=== PATIENT | female | born 1975 | race Caucasian/White ===

== ENCOUNTER 2018-11-28 08:22 | Day surgery (SDC) | payer OTHER ==
[2018-11-28] MEDS ORDERED: IBUPROFEN 800 MG/8 ML IJ IVPB PRN (14:37)
[2018-11-28] MEDS ORDERED: ACETAMINOPHEN 325 MG TABLET (FP) PO PRN (14:37)
--- NOTE | 2018-11-28 14:37 | HP ---
History & Physical Update - History History: No Change - Physical Physical: No Change - Assessment Assessment: No Change - Plan Plan: No Change (Agree with H&P from 11/17/2018, cervical dysplasia, for LEEP)
[2018-11-28] MEDS ORDERED: fentaNYL CITRATE 250 MCG/5 ML VIAL ONE (14:40)
[2018-11-28] MEDS ORDERED: PROPOFOL 20 ML ONE (14:41)
[2018-11-28] MEDS ORDERED: SUCCINYLCHOLINE CHLORIDE 200 MG/10 ML VIAL ONE (14:41)
[2018-11-28] MEDS ORDERED: MIDAZOLAM HCL 2 MG/2 ML SINGLE DOSE VIAL ONE (14:41)
[2018-11-28] MEDS ORDERED: LIDOCAINE HCL/PF 2% SDV 5ML VIAL ONE (14:42)
[2018-11-28] MEDS ORDERED: LACTATED RINGERS SOLUTION 1,000 ML IV SCH ×2 (14:45→15:30)
[2018-11-28] MEDS ORDERED: DEXAMETHASONE SOD PHOSPHATE 4 MG/1 ML VIAL ONE (15:06)
--- NOTE | 2018-11-28 15:14 | OP ---
Operative Note - Note: Operative Date: 11/28/18 (dictation [id number]) Pre-Operative Diagnosis: Cervical dysplasia Operation: LEEP Post-Operative Diagnosis: Same as Pre-op Surgeon: Amy Young Anesthesiologist/HOTEL ROOM ATTENDANT: Louise Moss Anesthesia: General (with LMA) Specimens Removed: cervical biopsy Estimated Blood Loss (mls): 5 Operative Report Dictated: Yes
[2018-11-28] MEDS ORDERED: ONDANSETRON 4 MG/2 ML VIAL IVPUSH PRN (15:17)
[2018-11-28] MEDS ORDERED: oxyCODONE HCL 5 MG TABLET PO PRN (15:17)
[2018-11-28] MEDS ORDERED: ACETAMINOPHEN 325 MG TABLET (FP) ONE (17:03)
[2018-11-28 17:09] VITALS: TEMP 97.5
[2018-11-28 18:20] VITALS: BP 114/78; PULSE 63
--- NOTE | 2018-11-29 16:55 | OP ---
DATE OF OPERATION: 11/28/2018 PREOPERATIVE DIAGNOSIS: Cervical dysplasia. POSTOPERATIVE DIAGNOSIS: Cervical dysplasia. PROCEDURE: Loop electrosurgical excision procedure. SURGEON: Amy Morse D.O. ANESTHESIA: LMA. ANESTHESIOLOGIST: Louise Moss CRNA ESTIMATED BLOOD LOSS: 5 mL. COMPLICATIONS: None. DISPOSITION: Stable to PACU. COUNTS: Sponge, needle, instrument counts correct. BRIEF HISTORY AND PROCEDURE: The patient is a 43-year-old female who was seen in the office and found to have cervical dysplasia> The patient was counseled on her options, and she elected to undergo a LEEP procedure. The patient signed consent for the procedure in the office. She was admitted to [facility] on November 28, 2018. Consents were reconfirmed. The patient was taken back to the operating room, placed in the dorsal lithotomy position, and LMA general anesthesia was applied. She was prepped and draped in the usual sterile fashion, and a hard timeout was performed. A plastic speculum was placed inside the vagina. The cervix was easily visualized and acetic acid was applied. Using a large LEEP loop a single pass from anterior to posterior was completed to remove the specimen which was sent to pathology for permanent evaluation. Rollerball cautery was used to cauterize the surgical bed, and Monsels solution was applied. Excellent hemostasis was achieved at the end of the case. All instruments were removed from the vagina. Sponge and instrument counts reportedly correct. The patient tolerated the procedure well, recovering in stable condition in the PACU after the procedure. AMY MORSE DO [id number] MTDD
--- NOTE | 2018-12-06 15:08 | PATH ---
Surgical Pathology Report Patient Name: HILDA ROMANO Med. Rec. #: [id number] /Age/Gender: 1975 (Age: 43) / F Account: [id number] Location: [facility] SURGICAL Taken: 11/28/2018 Received: 11/29/2018 Reported: 12/06/2018 Physicians: Amy Young M.D. Specimen(s) Received CERVICAL BIOPSY Clinical History Dysplasia Final Diagnosis CERVIX, CONE BIOPSY/LOOP ELECTROSURGICAL EXCISION PROCEDURE (LEEP): CERVICAL SQUAMOUS AND ENDOCERVICAL MUCOSA WITH LOW GRADE SQUAMOUS INTRAEPITHELIAL LESION (LSIL), IN A BACKGROUND OF MARKED ACUTE CERVICITIS. NO HIGH GRADE DYSPLASIA IDENTIFIED. SURGICAL RESECTION MARGINS: CANNOT BE ACCURATELY ASSESSED. SEE COMMENT. TRANSFORMATION ZONE: PRESENT. Comment: In view of the presence of detached dysplastic fragments, margins cannot be accurately assessed. Immunohistochemical stains performed at [place], [place] ([id number]) and interpreted at [facility] show p16 has focal, patchy positivity. Proliferative marker, ki-67 utilized to evaluate this case. Electronically Signed Hilda Mays M.D. Gross Description Received in formalin labeled "cervix biopsy" irregular fragments of white-cespedes soft tissue measuring 2 x 1 x 0.9 and 2 x 1 x 0.8 cm. Surgical margin is inked in black. Specimen is serially sectioned and entirely submitted in 2 cassettes. Separate fragment in each cassette. MLSZ/11/29/2018 sanml/11/29/2018
== END 2018-11-28 18:05 | disposition home or self-care (01) ==
LOC: JASU-SURG 08:22
PROVIDERS: ATTEND Obstetrics & Gynecology
PROC: 0UBC7ZX Excision of Cervix, Via Natural or Artificial Opening, Diagnostic (ICD-10-PCS; principal; 2018-11-28 15:00)
DX: N87.9 Dysplasia of cervix uteri, unspecified (principal)
CPT/HCPCS: 36415; 84703; 86850; 86900; 86901; 88307-TC; 94760

== ENCOUNTER 2019-05-18 18:11 | Emergency (ER) | payer OTHER ==
[2019-05-18 18:18] VITALS: BMI 22.8
--- NOTE | 2019-05-18 18:19 | PDOC ---
Rapid Medical Evaluation Chief Complaint: Pain Time Seen by Provider: 05/18/19 18:14 Medical Evaluation: Allergies Allergy/AdvReac Type Severity Reaction Status Date / Time No Known Allergies Allergy Verified 11/22/18 09:19 05/18/19 18:15I have performed a brief in-person evaluation of this patient. The patient presents with a chief complaint of:abd pain x 1 week, no fevers, no N/V/D, no dysuria or vaginal complaints . Pertinent physical exam findings: abd soft/ no rebound I have ordered the following: UA/ UCG The patient will proceed to the ED for further evaluation.
[2019-05-18] MEDS ORDERED: SODIUM CHLORIDE 1,000 ML IV STA (18:40)
[2019-05-18] MEDS ORDERED: ACETAMINOPHEN 1000 MG/100 ML VIAL (NON FORMULARY) IVPB ONE (18:40)
[2019-05-18] MEDS ORDERED: MAG HYDROX/AL HYDROX/SIMETH 30 ML UNIT-DOSE CUP PO ONE (18:41)
[2019-05-18] MEDS ORDERED: ONDANSETRON 4 MG/2 ML VIAL IVPUSH ONE (18:41)
--- NOTE | 2019-05-18 18:46 | PDOC ---
History of Present Illness <RockyDell - Last Filed: 05/18/19 22:48> - General History Source: Patient Exam Limitations: No Limitations <Karla Browning - Last Filed: 05/19/19 00:31> - General Chief Complaint: Pain Stated Complaint: ABD PAIN Time Seen by Provider: 05/18/19 18:14 Past History <RockyDell - Last Filed: 05/18/19 22:48> - Travel Traveled outside of the country in the last 30 days: No Close contact w/someone who was outside of country & ill: No - Past Medical History Asthma: Yes COPD: No - Psycho Social/Smoking Cessation Hx Smoking History: Never smoked Hx Alcohol Use: Yes (socially) Drug/Substance Use Hx: No <Karla Browning - Last Filed: 05/19/19 00:31> - Past Medical History Allergies/Adverse Reactions: Allergies Allergy/AdvReac Type Severity Reaction Status Date / Time No Known Allergies Allergy Verified 05/18/19 18:18 Home Medications: Ambulatory Orders Albuterol Sulfate Inhaler - [Ventolin Hfa Inhaler -] 1 puff IH PRN 11/22/18 Review of Systems - Review of Systems Able to Perform ROS?: Yes Comments:: 05/18/19 18:41 CONSTITUTIONAL: Absent: fever, chills, diaphoresis, generalized weakness, malaise, loss of appetite HEENT: Absent: rhinorrhea, nasal congestion, throat pain, throat swelling, difficulty swallowing, mouth swelling, ear pain, eye pain, visual Changes GASTROINTESTINAL: Present: abdominal pain Absent: abdominal pain, abdominal distension, nausea, vomiting, diarrhea, constipation, melena, hematochezia GENITOURINARY: Absent: dysuria, frequency, urgency, hesitancy, hematuria, flank pain, genital pain MUSCULOSKELETAL: Absent: myalgia, arthralgia, joint swelling SKIN: Absent: rash, itching, pallor NEUROLOGIC: Absent: headache, focal weakness or paresthesias, dizziness, unsteady gait, seizure, mental status changes, bladder or bowel incontinence PSYCHIATRIC: Absent: anxiety, depression, suicidal or homicidal ideation, hallucinations. Is the patient limited Syriac proficient: No <Karla Browning - Last Filed: 05/19/19 00:31> *Physical Exam - Vital Signs Last Vital Signs Temp Pulse Resp BP Pulse Ox 98.4 F 66 18 139/79 98 05/18/19 18:14 05/18/19 18:14 05/18/19 18:14 05/18/19 18:14 05/18/19 18:14 <Dell Hidalgo - Last Filed: 05/18/19 22:48> - Vital Signs Last Vital Signs Temp Pulse Resp BP Pulse Ox 98.4 F 66 18 139/79 98 05/18/19 18:14 05/18/19 18:14 05/18/19 18:14 05/18/19 18:14 05/18/19 18:14 - Physical Exam Comments: 05/18/19 18:42 GENERAL: Well developed, well nourished. Awake and alert. No acute distress. HEENT: Normocephalic, atraumatic. PERRLA, EOMI. No conjunctival pallor. Sclera are non- icteric. Moist mucous membranes. Oropharynx is clear. NECK: Supple. Full ROM. CARDIOVASCULAR: Regular rate and rhythm. No murmurs, rubs, or gallops. Distal pulses are 2+ and symmetric. PULMONARY: No evidence of respiratory distress. Lungs clear to auscultation bilaterally. No wheezing, rales or rhonchi. ABDOMINAL: TTP of the epigastric region, LUQ and RLQ. Soft. Non-distended. No rebound or guarding. No organomegaly. Normoactive bowel sounds. MUSCULOSKELETAL Normal range of motion at all joints. No bony deformities or tenderness. No CVA tenderness. EXTREMITIES: No cyanosis. No clubbing. No edema. No calf tenderness. SKIN: Warm and dry. Normal capillary refill. No rashes. No jaundice. NEUROLOGICAL: Alert, awake, appropriate. Cranial nerves 2-12 intact. No deficits to light touch and temperature in face, upper extremities and lower extremities. No motor deficits in the in face, upper extremities and lower extremities. Normoreflexic in the upper and lower extremities. Normal speech. Toes are down- going bilaterally. Gait is normal without ataxia. PSYCHIATRIC: Cooperative. Good eye contact. Appropriate mood and affect. <Karla Browning - Last Filed: 05/19/19 00:31> ED Treatment Course - LABORATORY CBC & Chemistry Diagram: 05/18/19 19:12 11/07/19 19:12 - ADDITIONAL ORDERS Additional order review: Laboratory Results 05/18/19 05/18/19 05/18/19 19:12 19:12 18:23 Sodium 140 Potassium 4.2 Chloride 106 Carbon Dioxide 27 Anion Gap 7 L BUN 10.8 Creatinine 0.5 L Est GFR (CKD-EPI)AfAm 138.36 Est GFR (CKD-EPI)NonAf 119.38 Random Glucose 94 Calcium 8.3 L Total Bilirubin 0.3 AST 21 ALT 17 Alkaline Phosphatase 72 Total Protein 7.0 Albumin 3.5 Lipase 243 Urine Color Yellow Urine Appearance Clear Urine pH 8.0 Ur Specific [place] 1.011 Urine Protein Negative Urine Glucose (UA) Negative Urine Ketones Negative Urine Blood 3+ H Urine Nitrite Negative Urine Bilirubin Negative Urine Urobilinogen 0.2 Ur Leukocyte Esterase Negative Urine WBC (Auto) 2 Urine RBC (Auto) 3 Urine Casts (Auto) 0 U Epithel Cells (Auto) 0.9 Urine Bacteria (Auto) 29.9 Urine HCG, Qual 05/18/19 18:23 Sodium Potassium Chloride Carbon Dioxide Anion Gap BUN Creatinine Est GFR (CKD-EPI)AfAm Est GFR (CKD-EPI)NonAf Random Glucose Calcium Total Bilirubin AST ALT Alkaline Phosphatase Total Protein Albumin Lipase Urine Color Urine Appearance Urine pH Ur Specific [place] Urine Protein Urine Glucose (UA) Urine Ketones Urine Blood Urine Nitrite Urine Bilirubin Urine Urobilinogen Ur Leukocyte Esterase Urine WBC (Auto) Urine RBC (Auto) Urine Casts (Auto) U Epithel Cells (Auto) Urine Bacteria (Auto) Urine HCG, Qual Negative 05/18/19 19:12 RBC 3.74 MCV 93.9 MCHC 33.0 RDW 14.7 MPV 9.6 Neutrophils % 49.4 Lymphocytes % 39.1 Monocytes % 9.4 Eosinophils % 1.5 Basophils % 0.6 - Medications Given in the ED: ED Medications Discontinued Medications Generic Name Dose Route Start Last Admin Trade Name Freq PRN Reason Stop Dose Admin Acetaminophen 1,000 mg 05/18/19 18:40 05/18/19 19:24 Ofirmev Injection - IVPB 05/18/19 18:41 1,000 mg ONCE ONE Administration Al Hydroxide/Mg Hydroxide 30 ml 05/18/19 18:41 05/18/19 19:24 Mylanta Oral Suspension - PO 05/18/19 18:42 30 ml ONCE ONE Administration Sodium Chloride 1,000 mls @ 1,000 mls/hr 05/18/19 18:40 05/18/19 19:24 Normal Saline - IV 05/18/19 19:39 1,000 mls/hr ASDIR STA Administration Ondansetron HCl 4 mg 05/18/19 18:41 05/18/19 19:24 Zofran Injection IVPUSH 05/18/19 18:42 4 mg ONCE ONE Administration <Dell Hidalgo - Last Filed: 05/18/19 22:48> - LABORATORY CBC & Chemistry Diagram: 05/18/19 19:12 05/18/19 19:12 <Karla Browning - Last Filed: 05/19/19 00:31> Medical Decision Making - Medical Decision Making 05/18/19 22:48 The patient was seen and evaluated in conjunction with SILAS Browning under my direct supervision, ancillary studies were reviewed.I agree with the plan as outlined by SILAS Browning . <Dell Hidalgo - Last Filed: 05/18/19 22:48> - Medical Decision Making 05/18/19 18:42 The patient is a 44 y/o F who presents to the ER today for abdominal pain x1 week. She states the pain started out of the blue. Denies recent travel, abx use , eating out. She states the pain is mostly on the L side of her abdomen and is consistent. Denies n/v/d/c. Denies fevers, chills, chest pain, SOB, urinary symptoms and back pain. A/P: abdominal pain On exam TTP of the epigastric region, LUQ, and LLQ Urine ordered from [facility] Given pain on exam, basic labs, IVF, and meds ordered DDX includes but is not limited to: gastroenteritis, PUD, pancreatitis, cholecystitis, biliary colic, diverticulitis, UTI, Pyelo, ovarian cyst. 05/19/19 00:15 No leukocytosis, H&H stable. Electrolytes grossly normal. Urine is negative for infection Transvaginal US is negative for acute pathology. No cyst on the L ovary. CT shows evidence of cholelithasis without evidence of cholecystitis. Confirmed CT findings with US findings DC home with symptomatic relief and surgical follow up. Strict return precautions given I discussed the physical exam findings, ancillary test results and final diagnoses with the patient. I answered all of the patient's questions. The patient was satisfied with the care received and felt comfortable with the discharge plan and treatment plan. The Patient agrees to follow up with the primary care physician/specialist within 24-72 hours. Return precautions were given. <Karla Browning - Last Filed: 05/19/19 00:31> Discharge <Dell Hidalgo - Last Filed: 05/18/19 22:48> - Discharge Information Problems reviewed: Yes - Admission No <Karla Browning - Last Filed: 05/19/19 00:31> - Discharge Information Clinical Impression/Diagnosis: Cholelithiases Qualifiers: Cholelithiasis location: gallbladder Cholecystitis presence: without cholecystitis Biliary obstruction: without biliary obstruction Qualified Code(s) : K80.20 - Calculus of gallbladder without cholecystitis without obstruction Condition: Stable Disposition: HOME - Follow up/Referral Referrals: Violet Smith MD [Primary Care Provider] - Eldon Ramos MD [Staff Physician] - - Patient Discharge Instructions Patient Printed Discharge Instructions: DI for Gallstones Additional Instructions: You were evaluated for your abdominal pain today. You have gallstones which are most likely causing your pain. You may take Tylenol 650 mg every 6 hours as needed for pain. You may take Motrin 600 mg every 6 hours as needed for pain Please follow-up with Dr. Ramos, surgery for further treatment options for your gallstones. Please avoid fatty foods and spicy foods as this can make the pain worse. Return to the ER for worsening pain despite medication, fever, vomiting or if you have any changes in your symptoms. Usted fue evaluado por noland dolor abdominal hoy. Tiene clculos biliares que probablemente le causen dolor. Puede scar Tylenol 650 mg cada 6 horas segn sea necesario para el dolor. Puede scar Motrin 600 mg cada 6 horas segn sea necesario para el dolor. Regina un seguimiento con el du [place], para conocer otras opciones de tratamiento para sesar clculos biliares. Evite los alimentos grasos y picantes, ya que esto puede empeorar el dolor. Regrese a la alexandro de emergencias para empeorar el dolor a pesar de la medicacin , fiebre, vmitos o si tiene algn cambio en sesar sntomas. Print Language: SIER[place] LEONEAN - Post Discharge Activity Work/Back to School Note: Back to Work
[2019-05-18] MEDS ORDERED: MAG HYDROX/AL HYDROX/SIMETH 30 ML UNIT-DOSE CUP ONE (18:56)
[2019-05-18] MEDS ORDERED: ACETAMINOPHEN INJECTION 100 ML IVPB ONE (18:56)
[2019-05-18] MEDS ORDERED: ONDANSETRON 4 MG/2 ML VIAL ONE (18:56)
[2019-05-18 19:09] LABS: EPI CELLS 0.9 /HPF (0-5/HPF); HYALINE CASTS 0 /lpf (0-8); URINE APPEARANCE CLEAR; URINE BACTERIA 29.9 /hpf (NEGATIVE); URINE BILIRUBIN NEGATIVE (NEGATIVE); URINE COLOR YELLOW; URINE GLUCOSE (UA) NEGATIVE (NEGATIVE); URINE KETONE NEGATIVE (NEGATIVE); URINE LEUK ESTERASE NEGATIVE (NEGATIVE); URINE NITRITE NEGATIVE (NEGATIVE); URINE PROTEIN NEGATIVE (NEGATIVE); URINE RBC 3 /hpf (0-4); URINE UROBILINOGEN 0.2 mg/dL (0.2-1.0); URINE WBC 2 /hpf (0-5)
[2019-05-18 19:51] LABS: BASO % 0.6 % (0-2.0); EOS % 1.5 % (0-4.5); HEMATOCRIT 35.1 % (32.4-45.2); HEMOGLOBIN 11.6 GM/dL (10.7-15.3); LYMPH % 39.1 % (8-40); MEAN CELL VOLUME 93.9 fl (80-96); MEAN PLT VOLUME 9.6 fl (7.5-11.1); MONO % 9.4 % (3.8-10.2); NEUT % 49.4 % (42.8-82.8); PLATELET COUNT 252 K/MM3 (134-434); RBC 3.74 M/mm3 (3.60-5.2); RDW 14.7 % (11.6-15.6); WHITE BLOOD COUNT 6.6 K/mm3 (4.0-10.0)
[2019-05-18 20:29] LABS: ALBUMIN 3.5 g/dl (3.4-5.0); BILIRUBIN,TOTAL 0.3 mg/dL (0.2-1); BLOOD UREA NITROGEN 10.8 mg/dL (7-18); CALCIUM 8.3 mg/dL (8.5-10.1); CREATININE 0.5 mg/dL (0.55-1.3); POTASSIUM 4.2 mmol/L (3.5-5.1)
[2019-05-18 23:57] VITALS: BP 126/68; PULSE 61; TEMP 98.5
== END 2019-05-18 23:55 | disposition home or self-care (01) ==
LOC: JER 18:11
PROC: 3E033NZ Introduction of Analgesics, Hypnotics, Sedatives into Peripheral Vein, Percutaneous Approach (ICD-10-PCS; principal; 2019-05-18)
PROC: 3E033GC Introduction of Other Therapeutic Substance into Peripheral Vein, Percutaneous Approach (ICD-10-PCS; 2019-05-18)
DX: K80.20 Calculus of gallbladder without cholecystitis without obstruction (principal); J45.909 Unspecified asthma, uncomplicated
CPT/HCPCS: 36415; 74177-TC; 76705-TC; 76830-TC; 80053; 81003; 83690; 84703; 85025; 99283-25; J0131; J7030

== ENCOUNTER 2023-12-13 03:44 | Day surgery (SDC) | payer OTHER ==
[2023-12-03 11:46] VITALS: BMI 24.3
[2023-12-13] MEDS ORDERED: SUCCINYLCHOLINE CHLORIDE 200 MG/10 ML SYRINGE ONE (11:45)
[2023-12-13] MEDS ORDERED: PROPOFOL 20 ML ONE ×2 (11:47→11:59)
[2023-12-13] MEDS ORDERED: ONDANSETRON 4 MG/2 ML VIAL IVPUSH PRN (11:49)
[2023-12-13] MEDS ORDERED: oxyCODONE HCL 5 MG TABLET PO PRN (11:49)
[2023-12-13] MEDS ORDERED: LACTATED RINGERS SOLUTION 1,000 ML IV SCH (12:00)
[2023-12-13] MEDS ORDERED: FENTANYL CITRATE/PF 50 MCG/ML VIAL ONE (12:02)
[2023-12-13] MEDS ORDERED: ACETAMINOPHEN 325 MG TABLET (FP) PO PRN (13:22)
[2023-12-13] MEDS ORDERED: IBUPROFEN 400 MG TABLET (FP) PO PRN (13:22)
[2023-12-13 14:24] VITALS: RESP 18
[2023-12-13 14:55] VITALS: BP 134/80; PULSE 64; TEMP 97.1
== END 2023-12-13 14:55 | disposition home or self-care (01) ==
LOC: JASU-SURG 03:44
PROVIDERS: ATTEND Obstetrics & Gynecology
PROC: 0UB98ZZ Excision of Uterus, Via Natural or Artificial Opening Endoscopic (ICD-10-PCS; principal; 2023-12-13 10:00)
DX: N92.0 Excessive and frequent menstruation with regular cycle (principal); D25.0 Submucous leiomyoma of uterus; N84.1 Polyp of cervix uteri
CPT/HCPCS: 81025; 88305-TC; 94760